=== PATIENT | female | born 1940 | race Caucasian/White ===

== ENCOUNTER → 2019-12-13 11:21 | Outpatient (BNVA) | payer MEDICARE, OTHER, SELFPAY | PROVIDERS: Family Provider Family Medicine; PCP Family Medicine; Visit Provider Nurse Practitioner Family | DX: N39.46 Mixed incontinence (principal); R82.71 Bacteriuria; R31.0 Gross hematuria | CPT/HCPCS: 81001; 87077; 87086; 87186 ==

== ENCOUNTER → 2021-08-27 12:05 | Outpatient (BNVA) | payer MEDICARE, OTHER, SELFPAY | PROVIDERS: Family Provider Family Medicine; PCP Family Medicine; Visit Provider Internal Medicine Cardiovascular Disease | DX: R06.02 Shortness of breath (principal); I50.33 Acute on chronic diastolic (congestive) heart failure; R60.0 Localized edema; I48.20 Chronic atrial fibrillation, unspecified; I11.0 Hypertensive heart disease with heart failure; Z95.0 Presence of cardiac pacemaker | CPT/HCPCS: 80048; 83880 ==

== ENCOUNTER → 2021-09-06 08:13 | Outpatient (BNVA) | payer MEDICARE, OTHER, SELFPAY | PROVIDERS: Family Provider Family Medicine; PCP Family Medicine; Referring Provider Internal Medicine Cardiovascular Disease; Visit Provider Internal Medicine Cardiovascular Disease | DX: Z01.810 Encounter for preprocedural cardiovascular examination (principal); I50.32 Chronic diastolic (congestive) heart failure; R06.02 Shortness of breath; R60.0 Localized edema | CPT/HCPCS: 80048; 83880 ==

== ENCOUNTER 2021-09-07 14:18 | Outpatient (CLI) | payer MEDICARE, OTHER, SELFPAY ==
--- NOTE | 2021-09-07 14:25 | XR_ITS ---
WS: [id number] Chest 2 views, 09/07/2021 Clinical Data: ACUTE BRONCHITIS Comparison: Multiple chest, 04/08/2018. Findings: No nodules, masses or effusions are seen. The heart is normal. The pulmonary vascularity is not increased. No pneumonia or pneumothorax is seen. The aortic arch and descending thoracic aorta s how minimal calcification and tortuosity. There is a permanent pacemaker with the generator overlying the left upper chest. There are clips in the right upper quadrant from a cholecystectomy. There is a n enchondroma or bone infarct in the proximal left humerus. XR/XR chest 2V* [id number] Impression: Atherosclerosis.
== END 2021-09-07 14:19 | disposition home or self-care (01) ==
PROVIDERS: PCP Family Medicine; Visit Provider Clinical Nurse Specialist Adult Health
DX: J20.9 Acute bronchitis, unspecified (principal)
CPT/HCPCS: 71046

== ENCOUNTER → 2022-02-27 13:15 | Outpatient (BNVA) | payer MEDICARE, OTHER, SELFPAY | PROVIDERS: PCP Family Medicine; Visit Provider Internal Medicine Cardiovascular Disease | DX: I11.0 Hypertensive heart disease with heart failure (principal); I50.32 Chronic diastolic (congestive) heart failure; R60.0 Localized edema; Z95.0 Presence of cardiac pacemaker; I48.20 Chronic atrial fibrillation, unspecified | CPT/HCPCS: 99213; 99214 ==

== ENCOUNTER 2022-03-10 08:17 | Inpatient (IN) | payer MEDICARE, OTHER, SELFPAY ==
[2022-03-10] VITALS (15 sets, daily range): BP systolic 130–151; BP diastolic 50–88; PULSE 60–97; RESP 15–18; TEMP 35.9–36.8; O2SAT 90–97; BMI 28.3; BMI 29.5
--- NOTE | 2022-03-10 08:36 | XRR_ITS ---
PROCEDURE INFORMATION: Exam: XR Lumbosacral Spine Exam date and time: 03/10/2022 8:47 AM Age: 81 years old Clinical indication: Low back pain TECHNIQUE: Imaging protocol: XR of the lumbosacral spine. Views: 2 or 3 views. COMPARISON: CT Abdomen/Pelvis Renal [id number] 03/08/2019 7:06 PM FINDINGS: Tubes, catheters and devices: Partially visualized pacer lead seen in the right ventricle. Bones/joints: No acute fracture. Mild vertebral body height loss centrally along the inferior endplate of L2. Multilevel degenerative disc disease involving the L3-S1 segment. Grade 1 anterolisthesis of L4 on L5 and L5 on S1. Facet arthropathy noted in the lower lumbar spine. Soft tissues: See Intraperitoneal space finding. Intraperitoneal space: Cholecystectomy clips noted. Surgical clips also noted in the right hemipelvis. XR/XR lumbar spine 2-3V* [id number] IMPRESSION: Mild chronic appearing vertebral body height loss centrally along the inferior endplate of L2. Multilevel degenerative disc disease involving the L3-S1 segment. Grade 1 anterolisthesis of L4 on L5 and L5 on S1 with facet arthropathy noted in the lower lumbar spine.
--- NOTE | 2022-03-10 08:37 | W.ED.BACK ---
HPI - Back Pain/Injury General: Chief Complaint: Back Pain/Injury Stated Complaint: Severe Lower Back Pain Time Seen by Provider: 03/10/22 08:27 Source: patient Mode of arrival: ambulatory Limitations: no limitations History of Present Illness: 81-year-old female states that she had bent down to pick something up yesterday and felt a sharp spasm in her back. States she has had low back pain since then. She states it was severe last night and has been having a difficult time walking due to it states actually improved today pain is now 6 out of 10 improved with rest she states this feels painful with movement denies any bowel or bladder incontinence. She states that since her pain she has not really been able to walk at all Associated symptoms: Deny abdominal pain, chills, dysuria, fever(s), nausea or vomiting Review of Systems Const: Denies: fever(s), chills, body aches or change in appetite Eyes: Denies: blurry vision or eye discomfort ENMT: Denies: throat pain or dental pain Card: Denies: chest pain Resp: Denies: dyspnea GI: Denies: abdominal pain, nausea, vomiting or diarrhea : Denies: dysuria Musc: Reports: back pain Skin/Breast: Denies: rash Neuro: Denies: headache(s) Psych: Denies: depression Asif/Lymph: Denies: easy bruising All/Imm: Denies: urticaria PFSH ED PFSH: Medical History Benign essential HTN CHF (congestive heart failure) Chronic episodic atrial fibrillation Patient has a history of prolonged bleeding and easy bruising. For that reason, she is not on any oral anticoagulation. Gross hematuria Hx of cardiac pacemaker Leg edema Mixed incontinence Vulvar abscess Surgical History S/P cardiac pacemaker procedure S/P cholecystectomy S/P cystoscopy with ureteral stent placement S/P hysterectomy Status post hip surgery Family History Mother , 80 Cancer colon Diabetes Father , 90 No problems noted. Family/Other CAD (coronary artery disease) Cancer uterine Brother CAD (coronary artery disease) Daughter Diabetes Denies family history of Clotting disorder Dementia Chronic kidney disease (CKD) Suicide Anesthesia complication Bleeding disorder Lung disease Stroke Social History Smoking and tobacco status: never smoked Alcohol intake: never Marital status: / Current occupational status: retired Physical Exam Const: COMMON NORMALS: no acute distress, patient oriented x3 and healthy appearing HENMT: COMMON NORMALS: normocephalic and atraumatic HEAD & SCALP: normocephalic and atraumatic Eye: COMMON NORMALS: Equal, round and reactive pupils present and EOMs intact bilaterally PUPIL: Yes Equal, round and reactive pupils present Neck/C-Spine: COMMON NORMALS: full ROM and supple Chest: COMMONS NORMALS: normal inspection of the chest and normal palpation of entire chest wall Resp: COMMON NORMALS: normal respiratory effort, No retractions, No use of accessory muscles and clear to auscultation bilaterally AUSCULTATION: clear to auscultation bilaterally Cardio: COMMON NORMALS: regular rate, regular rhythm and No murmurs present (Cardio) RATE: regular rate RHYTHM: regular rhythm GI: COMMON NORMALS: Normal to inspection, nondistended, normoactive bowel sounds present, Soft to palpation, non-tender and no masses PALPATION: Yes Soft to palpation Back/Pelvis: OTHER: Paraspinal tenderness no midline tenderness no saddle anesthesia Extremity: COMMON NORMALS: normal to inspection and full ROM Neuro: COMMON NORMALS: patient oriented x3, moves all extremities and no focal motor deficits Psych: COMMON NORMALS: mental status grossly normal, Normal thought process present and cooperative THOUGHT PROCESS: Normal thought process present Skin: COMMON NORMALS: no rashes or lesions noted and no wounds GENERAL SKIN EXAM: no rashes or lesions noted Course Vital Signs: Vital signs: Vital Signs Temperature 98.2 F 03/10/22 08:37 Pulse Rate 79 03/10/22 08:37 Respiratory Rate 18 03/10/22 08:37 Blood Pressure 146/50 03/10/22 10:45 Pulse Oximetry 93 03/10/22 10:45 MDM - Back Pain/Injury Medical Decision Making Patient presents with low back pain likely muscular in nature she has no signs of cord compression patient's family states that she lives with them but they are unable to care for her and want her admitted for likely half-way placement. Labs : 03/10/22 09:34 03/10/22 09:34 Radiology Impressions Lumbar Spine X-Ray 03/10/22 08:36 IMPRESSION: Mild chronic appearing vertebral body height loss centrally along the inferior endplate of L2. Multilevel degenerative disc disease involving the L3-S1 segment. Grade 1 anterolisthesis of L4 on L5 and L5 on S1 with facet arthropathy noted in the lower lumbar spine. Lumbar Spine CT 03/10/22 09:12 IMPRESSION: 1. Mild compression deformity centrally along the inferior endplate of L2 which appears chronic. Advanced multilevel degenerative disc disease involving the L3-S1 segment. This includes facet arthropathy and grade 1 anterolisthesis of L4 on L5 and L5 on S1. Moderate to severe central canal stenosis most pronounced at L3-L4. 2. Partially visualized small volume pleural effusions, left greater than right. 3. Severe DJD and potential deformity from prior fracture involving the right hip/proximal right femur. Laboratory Results WBC 6.8 10^3/uL (4.0-10.0) 03/10/22 09:34 RBC 3.07 10^6/uL (4.1-5.3) L 03/10/22 09:34 Hgb 10.4 g/dL (11.5-15.3) L 03/10/22 09:34 Hct 32.3 % (37.0-47.0) L 03/10/22 09:34 MCV 105.2 fl (81-99) H 03/10/22 09:34 MCH 33.9 pg (28.0-34.0) 03/10/22 09:34 MCHC 32.2 g/dL (30.0-36.0) 03/10/22 09:34 RDW 19.8 % (12.1-15.1) H 03/10/22 09:34 Plt Count 294 10^3/cmm (130-400) 03/10/22 09:34 MPV 9.2 fL (7.4-10.4) 03/10/22 09:34 Neut % (Auto) 64.7 % 03/10/22 09:34 Lymph % (Auto) 15.1 % 03/10/22 09:34 Villalba % (Auto) 18.8 % 03/10/22 09:34 Eos % (Auto) 0.1 % 03/10/22 09:34 Baso % (Auto) 0.4 % 03/10/22 09:34 Neut # (Auto) 4.41 10^3/uL (1.8-7.7) 03/10/22 09:34 Lymph # (Auto) 1.0 10^3/uL (0.8-4.8) 03/10/22 09:34 Villalba # (Auto) 1.3 10^3/uL (0.2-0.9) H 03/10/22 09:34 Eos # (Auto) 0.0 10^3/uL (0.0-0.8) 03/10/22 09:34 Baso # (Auto) 0.0 10^3/uL (0.0-0.1) 03/10/22 09:34 Nucleated RBC % (auto) 0 % 03/10/22 09:34 Nucleated RBCs # 0.0 /100WBC 03/10/22 09:34 Sodium 135 mmol/L (136-145) L 03/10/22 09:34 Potassium 3.4 mmol/L (3.5-5.1) L 03/10/22 09:34 Chloride 97 mmol/L (98-107) L 03/10/22 09:34 Carbon Dioxide 24 mmol/L (22-29) 03/10/22 09:34 Anion Gap 17.4 (5-19) 03/10/22 09:34 BUN 16 mg/dL (8-23) 03/10/22 09:34 Creatinine 1.0 mg/dL (0.5-0.9) H 03/10/22 09:34 GFR Calculation Not Reportable 03/10/22 09:34 Glucose 101 mg/dL (65-115) 03/10/22 09:34 Calculated Osmolality 281 mOsm/kg (285-295) L 03/10/22 09:34 Calcium 9.0 mg/dL (8.5-10.5) 03/10/22 09:34 Total Bilirubin 2.2 mg/dL (0.15-1.2) H 03/10/22 09:34 AST 40 U/L (0-32) H 03/10/22 09:34 ALT 11 U/L (0-33) 03/10/22 09:34 Alkaline Phosphatase 197 IU/L (35-105) H 03/10/22 09:34 Total Protein 6.2 g/dL (6.6-8.7) L 03/10/22 09:34 Albumin 3.2 g/dL (3.5-5.2) L 03/10/22 09:34 Globulin 3.0 g/dL (1.3-4.6) 03/10/22 09:34 Urine Color Yellow (Yellow) 03/10/22 09:30 Urine Appearance Clear (CLEAR) 03/10/22 09:30 Urine pH 5 (5-7) 03/10/22 09:30 Ur Specific [place] 1.010 (1.005-1.030) 03/10/22 09:30 Urine Protein Neg (Negative) 03/10/22 09:30 Urine Glucose (UA) Norm (Normal) 03/10/22 09:30 Urine Ketones 1+ (Negative) H 03/10/22 09:30 Urine Blood Neg (Negative) 03/10/22 09:30 Urine Nitrate Negative (Negative) 03/10/22 09:30 Urine Bilirubin Neg (Negative) 03/10/22 09:30 Urine Urobilinogen 1 mg/dL (Negative) H 03/10/22 09:30 Ur Leukocyte Esterase Negative (Negative) 03/10/22 09:30 Discharge Plan Discharge Condition: Stable Prescriptions: No Action acetaminophen [Tylenol Extra Strength] 500 mg tablet 500 mg PO Q6H PRN0RF famotidine 20 mg tablet 20 mg PO BID 0RF allopurinol 100 mg tablet 100 mg PO DAILY 0RF cholecalciferol (vitamin D3) 1,250 mcg (50,000 unit) capsule 1,250 mcg PO DAILY 0RF furosemide 40 mg tablet 40 mg PO BID Qty: 60 5RF potassium chloride [Klor-Con M20] 20 mEq tablet,ER particles/crystals 20 meq PO BID Qty: 60 5RF Referrals: Lai Wren MD [Primary Care Provider] - Coding Level of Care Code ED Manager [employer] for Chg Fwd Exam Comprehensive
[2022-03-10] MEDS: HYDROcodone-acetaminophen 5-325 mg Tablet 1 TAB PO (08:43)
--- NOTE | 2022-03-10 08:48 | PC.NURSE ---
Patient daughter states she is concerned that her mother can not go home because she forgets if she takes her medications, she was in so much pain per daughter last night that she did not get up to go to the bathroom and urinated in the chair she was sitting in. Patient reports that at this time her pain is 5/10 and doing better than it was this morning. Verified with Dr. Barrios that it was okay to give pain pill that was prescribed, he states okay to give.
--- NOTE | 2022-03-10 09:12 | CTR_ITS ---
PROCEDURE INFORMATION: Exam: CT Lumbar Spine Without Contrast Exam date and time: 03/10/2022 9:46 AM Age: 81 years old Clinical indication: Low back pain TECHNIQUE: Imaging protocol: Computed tomography images of the lumbar spine without contrast. Radiation optimization: All CT scans at this facility use at least one of these dose optimization techniques: automated exposure control; mA and/or kV adjustment per patient size (includes targeted exams where dose is matched to clinical indication); or iterative reconstruction. COMPARISON: CR (PELVIS, ) 03/10/2022 8:47 AM RADIATION DOSE METRICS: Total DLP (mGy-cm): 2013.14 FINDINGS: Vertebrae: Generalized osseous demineralization. Grade 1 anterolisthesis of L4 on L5 and L5 on S1 secondary to facet arthropathy at these levels. Mild vertebral body height loss centered centrally along the inferior endplate of L2 which appears chronic. Discs/Spinal canal/Neural foramina: Multilevel degenerative disc disease most significant at L3-L4, L4-L5, and L5-S1. Moderate to severe central canal stenosis most pronounced at L3-L4. 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 There also appears to be deformity potentially from prior fracture involving the proximal right femur. Pleural space: Partially visualized small volume pleural effusions, left greater than right. Soft tissues: Subcutaneous edema and skin thickening within the soft tissues of the low back. CT/CT lumbar spine wo con* [id number] IMPRESSION: 1. Mild compression deformity centrally along the inferior endplate of L2 which appears chronic. Advanced multilevel degenerative disc disease involving the L3-S1 segment. This includes facet arthropathy and grade 1 anterolisthesis of L4 on L5 and L5 on S1. Moderate to severe central canal stenosis most pronounced at L3-L4. 2. Partially visualized small volume pleural effusions, left greater than right. 3. Severe DJD and potential deformity from prior fracture involving the right hip/proximal right femur.
[2022-03-10 09:41] LABS: Add Urine Microscopic? NO; Charge for UA Resulting for Rev
[2022-03-10 09:42] LABS: Bilirubin Urine Neg (Negative); Blood Urine Neg (Negative); Glucose Urine UA Norm (Normal); Ketones Urine 1+ (Negative); Leukocyte Esterase Urine Negative (Negative); Nitrate Urine Negative (Negative); Protein Urine Neg (Negative); Urine Appearance Clear (CLEAR); Urine Color Yellow (Yellow); Urobilinogen Urine 1 mg/dL (Negative); pH Urine 5 (5-7)
[2022-03-10 09:45] LABS: Basophils % 0.4 %; Eosinophils % 0.1 %; Hematocrit 32.3 % (37.0-47.0); Hemoglobin 10.4 g/dL (11.5-15.3); Lymphocytes % 15.1 %; Mean Corpuscular HGB Conc 32.2 g/dL (30.0-36.0); Mean Corpuscular Hemoglobin 33.9 pg (28.0-34.0); Mean Corpuscular Volume 105.2 fl (81-99); Mean Platelet Volume 9.2 fL (7.4-10.4); Monocytes # 1.3 10^3/uL (0.2-0.9); Monocytes % 18.8 %; Neutrophils # 4.41 10^3/uL (1.8-7.7); Neutrophils % 64.7 %; Nucleated Red Blood Cells % 0 %; Platelet Count 294 10^3/cmm (130-400); Red Blood Count 3.07 10^6/uL (4.1-5.3); Red Cell Distribution Width 19.8 % (12.1-15.1); White Blood Count 6.8 10^3/uL (4.0-10.0)
[2022-03-10 10:03] LABS: Alanine Aminotransferase 11 U/L (0-33); Albumin Level 3.2 g/dL (3.5-5.2); Alkaline Phosphatase 197 IU/L (35-105); Anion Gap 17.4 (5-19); Aspartate Amino Transferase 40 U/L (0-32); Blood Urea Nitrogen 16 mg/dL (8-23); Carbon Dioxide 24 mmol/L (22-29); Chloride 97 mmol/L (98-107); Glucose 101 mg/dL (65-115); Osmolality Calculated 281 mOsm/kg (285-295); Potassium 3.4 mmol/L (3.5-5.1); Sodium 135 mmol/L (136-145); Total Bilirubin 2.2 mg/dL (0.15-1.2); Total Protein 6.2 g/dL (6.6-8.7)
[2022-03-10] MEDS: ondansetron 2 mg/ML SDV 2 mL 4 MG IVP ×2 (10:28→14:13)
[2022-03-10 12:02] LABS: Erythrocyte Sedimentation Rate 46 mm/hr (0-15)
--- NOTE | 2022-03-10 12:02 | PM.HP ---
Providers/Chief Complaint Admitting Physician: Matthias Dickerson MD Primary Care Provider: Lai Wren MD Chief Complaint: Severe Lower Back Pain History of Present Illness Saul Rubin is a 81 year old female with a past medical history of diastolic CHF, bilateral lower extremity edema, paroxysmal atrial fibrillation not on anticoagulation due to bleeding in bruising, hypertension, history of pacemaker placement, who presents to [facility] due to bilateral extremity edema, generalized weakness, shortness of breath, and back pain. Patient tells me that she lives in [place], she lives with her family, she typically ambulates in a wheeled walker, can go to and from the bathroom, but does not really ambulate outside the house, she can feed herself, no recent falls, recent injuries, she does have some degree of chronic back pain. She tells me that yesterday, she was reaching for something on the floor, when she had a sudden onset of severe lower back pain. No urinary incontinence. No bowel incontinence. No saddle or perianal anesthesia. She says since then she has not been able to transfer, not been able to get out of her wheelchair, and the pain has been very severe. She tells me that she is developing increasingly shortness of breath, with bilateral lower extremity edema she takes Lasix but she tells is not helping her. Her swelling of her legs is all the way up to her thighs. Denies any chest pain. No palpitations. No fevers, no cough. No history of smoking. No history of DVTs. No hemoptysis. She does report fatigue, malaise, has an appropriate appetite, no weight loss no night sweats Review of Systems Const: Denies: fever(s), chills, fatigue or malaise Eyes: Denies: change in vision ENMT: Denies: nasal congestion Card: Reports: edema and swelling of feet/ankles; Denies: chest pain Resp: Denies: dyspnea, productive cough, non-productive cough or wheezing GI: Denies: abdominal pain, nausea, vomiting, hematemesis, diarrhea, constipation, hematochezia or melena : Denies: flank pain, dysuria or urinary frequency Musc: Reports: back pain and muscle weakness; Denies: neck pain Skin/Breast: Denies: rash Neuro: Denies: dizziness Psych: Denies: anxiety or depression Endo: Denies: polyuria or polydipsia Medications/Allergies Home Medications Medication Instructions Recorded Confirmed Last Taken Type cholecalciferol (vitamin D3) 1,250 1,250 mcg PO DAILY 12/13/19 02/27/22 Unknown History mcg (50,000 unit) capsule acetaminophen 500 mg tablet 500 mg PO Q6H PRN 08/27/21 02/27/22 Unknown History (Tylenol Extra Strength) allopurinol 100 mg tablet 100 mg PO DAILY 08/27/21 02/27/22 Unknown History famotidine 20 mg tablet 20 mg PO BID tab 08/27/21 02/27/22 Unknown History furosemide 40 mg tablet 40 mg PO BID #60 tab 08/28/21 02/27/22 Unknown Rx potassium chloride 20 mEq 20 meq PO BID #60 tab 08/28/21 02/27/22 Unknown Rx tablet,extended release(part/cryst) (Klor-Con M) Allergies Allergy/AdvReac Type Severity Reaction Status Date / Time iodine Allergy NA Verified 08/27/21 08:29 lactase [From Dairy Aid] Allergy NA Verified 08/27/21 08:29 Penicillins Allergy NA Verified 08/27/21 08:29 soap Allergy NA Verified 08/27/21 08:29 PFSH Acute PFSH: Medical History (Updated 03/10/22 @ 12:13 by Matthias Dickerson MD) Benign essential HTN CHF (congestive heart failure) Chronic episodic atrial fibrillation Patient has a history of prolonged bleeding and easy bruising. For that reason, she is not on any oral anticoagulation. Gross hematuria Hx of cardiac pacemaker Leg edema Mixed incontinence Vulvar abscess Surgical History S/P cardiac pacemaker procedure S/P cholecystectomy S/P cystoscopy with ureteral stent placement S/P hysterectomy Status post hip surgery Family History Mother , 80 Cancer colon Diabetes Father , 90 No problems noted. Family/Other CAD (coronary artery disease) Cancer uterine Brother CAD (coronary artery disease) Daughter Diabetes Denies family history of Clotting disorder Dementia Chronic kidney disease (CKD) Suicide Anesthesia complication Bleeding disorder Lung disease Stroke Social History Smoking and tobacco status: never smoked Alcohol intake: never Marital status: / Current occupational status: retired Vitals/I&O/Wt Last Vital Signs Temp 98.2 F 03/10/22 08:37 Pulse 79 03/10/22 08:37 Resp 18 03/10/22 08:37 BP 146/50 03/10/22 10:45 Pulse Ox 93 03/10/22 10:45 Weight last 48 hrs Weight 70.307 kg Physical Exam Const: COMMON NORMALS: no acute distress and patient oriented x3 HENMT: COMMON NORMALS: normocephalic HEAD & SCALP: normocephalic Eye: COMMON NORMALS: Equal, round and reactive pupils present and EOMs intact bilaterally Neck/C-Spine: COMMON NORMALS: no JVD Resp: COMMON NORMALS: normal respiratory effort, No retractions, No use of accessory muscles and clear to auscultation bilaterally AUSCULTATION: clear to auscultation bilaterally Cardio: COMMON NORMALS: no JVD, regular rate, regular rhythm, S1 normal heart sound present and S2 normal heart sound present RATE: regular rate RHYTHM: regular rhythm HEART SOUNDS: S1 normal heart sound present and S2 normal heart sound present GI: COMMON NORMALS: Normal to inspection, nondistended, normoactive bowel sounds present, Soft to palpation, non-tender and no bruits PALPATION: Yes Soft to palpation and Yes No hepatosplenomegaly present OTHER: On exam, has an abdominal wall hernia, reducible Extremity: COMMON NORMALS: no calf tenderness NARRATIVE EXTREMITY EXAM: Bilateral lower extremity edema, 2+ pitting edema, up to the level of the thighs Neuro: COMMON NORMALS: patient oriented x3, CN's II-XII intact bilaterally, moves all extremities and no focal motor deficits Psych: COMMON NORMALS: mental status grossly normal Data : 03/10/22 09:34 03/10/22 09:34 A&P Assessment and plan (1) Acute exacerbation of CHF (congestive heart failure): Status: Acute (2) Lumbar back pain: Status: Acute (3) Unable to ambulate: Status: Acute (4) Leg edema: Status: Acute (5) Chronic episodic atrial fibrillation: Status: Acute (6) Benign essential HTN: Status: Acute (7) Acute anemia: Status: Acute Plan Acute diastolic CHF exacerbation with bilateral extremity edema -Pitting edema up to the level of the thighs 2+ -Start Lasix 40 IV twice daily -Potassium greater than 4, mag greater than 2 -Fluid restriction 1000 cc -Lovenox for DVT prophylaxis -For now she is a full code, however she wants to go over her CODE STATUS with her family Bilateral lower extremity edema up to the level of thighs, as above Acute anemia -Hemoglobin 10.4 -Hemoccult stool, ferritin, iron, B12, folate Lower lumbar back pain -1. Mild compression deformity centrally along the inferior endplate of L2 which appears chronic. Advanced multilevel degenerative disc disease involving the L3-S1 segment. This includes facet arthropathy and grade 1 anterolisthesis of L4 on L5 and L5 on S1. Moderate to severe central canal stenosis most pronounced at L3-L4. 2. Partially visualized small volume pleural effusions, left greater than right. 3. Severe DJD and potential deformity from prior fracture involving the right hip/proximal right femur. -Pain control morphine -Gabapentin 300 twice daily -Flexeril for muscle spasms -PT OT Elevated LFTs, elevated alk phos, elevated bilirubin, -Will do CT scan abdomen pelvis Paroxysmal atrial fibrillation, History of pacemaker placement Attestations Medical Necessity Statement*: Patient requires hospitalization for diastolic CHF exacerbation, bilateral extremity edema, intractable back pain, anemia, greater than 2 midnights, inpatient Coding Level of Care Code Acute Bi Developer for Willieg Fwd Diagnoses Acute exacerbation of CHF (congestive heart failure) I50.9 Lumbar back pain M54.50 Unable to ambulate R26.2 Leg edema R60.0 Chronic episodic atrial fibrillation I48.20 Benign essential HTN I10 Acute anemia D64.9
--- NOTE | 2022-03-10 12:13 | PC.NURSE ---
Attempted to call report, states they will call back.
[2022-03-10 12:29] LABS: Ferritin 174 ng/mL (15-150); Iron 93 ug/dL (37-145); Magnesium 2.1 mg/dL (1.7-2.3); NT Pro B Type Natriuretic Pept 3821 pg/mL (0-450); Percent Saturation 54.7 % (20-50); Total Iron Binding Capacity 170 mcg/dl; Unsaturated Iron Binding 77 ug/dL (112-347); Vitamin B12 581 pg/mL (232-1245)
[2022-03-10 12:32] LABS: Folate Level 7.4 ng/mL (4.8-37.3)
--- NOTE | 2022-03-10 13:01 | CTR_ITS ---
PROCEDURE INFORMATION: Exam: CT Abdomen And Pelvis Without Contrast Exam date and time: 03/10/2022 1:52 PM Age: 81 years old Clinical indication: Other: Low back pain; Prior surgery; Surgery type: Hyst, gb, stomach; Patient HX: C/O lbp w elev labs; Additional info: Hyperbolirubinemia, elevated alk phos TECHNIQUE: Imaging protocol: Computed tomography of the abdomen and pelvis without contrast. Radiation optimization: All CT scans at this facility use at least one of these dose optimization techniques: automated exposure control; mA and/or kV adjustment per patient size (includes targeted exams where dose is matched to clinical indication); or iterative reconstruction. COMPARISON: CT Abdomen/Pelvis Renal [id number] 03/08/2019 7:06 PM RADIATION DOSE METRICS: Total DLP (mGy-cm): 1529.59 FINDINGS: Tubes, catheters and devices: Pacemaker partially visualized. Lungs: Bibasilar atelectasis versus infiltrate. Right lower lobe demonstrates 2 possible adjacent pulmonary nodules measuring 17 and 9.3 mm, dedicated nonemergent chest CT advised for further evaluation. Pleural spaces: Moderate bilateral right greater left pleural effusions. Heart: Coronary artery atherosclerotic calcifications. Liver: Hepatic steatosis suspected. Gallbladder and bile ducts: Cholecystectomy. Pancreas: Normal. No ductal dilation. Spleen: Normal. No splenomegaly. Adrenal glands: Normal. No mass. Kidneys and ureters: Right kidney cyst, negative for follow-up advised. Mild right hydronephrosis and hydroureter without focal obstructing lesion. Stomach and bowel: Unremarkable. No obstruction. No mucosal thickening. Appendix: No evidence of appendicitis. Intraperitoneal space: Unremarkable. No free air. No significant fluid collection. Vasculature: Unremarkable. No abdominal aortic aneurysm. Lymph nodes: Unremarkable. No enlarged lymph nodes. Urinary bladder: Mild urinary bladder wall thickening may be due to nondistention, a cystitis is also consideration. Reproductive: Unremarkable as visualized. 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 Soft tissues: Large umbilical hernia containing omentum and bowel without dilation or inflammation. Anasarca. Other findings: Diverticulosis diverticulitis. CT/CT abdomen pelvis wo con [id number] IMPRESSION: 1. Negative for focal acute inflammatory process in the abdomen or pelvis. 2. Moderate bilateral right greater left pleural effusions. 3. Coronary artery atherosclerotic calcifications. 4. Pacemaker partially visualized. 5. Bibasilar atelectasis versus infiltrate. 6. Right lower lobe demonstrates 2 possible adjacent pulmonary nodules measuring 17 and 9.3 mm, dedicated nonemergent chest CT advised for further evaluation. 7. Hepatic steatosis suspected. 8. Cholecystectomy. 9. Right kidney cyst, negative for follow-up advised. 10. Mild right hydronephrosis and hydroureter without focal obstructing lesion. 11. Large umbilical hernia containing omentum and bowel without dilation or inflammation. 12. Diverticulosis diverticulitis. 13. Mild urinary bladder wall thickening may be due to nondistention, a cystitis is also consideration. 14. Anasarca. 15. 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
[2022-03-10] MEDS: enoxaparin 40 mg/0.4 mL Syringe SUBCUT (14:11)
[2022-03-10] MEDS: potassium chloride ER 20 mEq Tablet PO ×2 (14:13→18:02)
[2022-03-10] MEDS: FUROsemide 10 mg/mL SDV 4mL 40 MG IVP (14:14)
[2022-03-10] MEDS: pantoprazole 40 mg SDV IVP (14:15)
[2022-03-10 16:11] LABS: LAB Peripheral Smear Sent for Review
--- NOTE | 2022-03-10 17:58 | XRR_ITS ---
PROCEDURE INFORMATION: Exam: XR Bilateral Hips Exam date and time: 03/10/2022 6:24 PM Age: 81 years old Clinical indication: Right hip; Patient HX: C/O chronic R hip pain; Additional info: Chronic R hip FX? TECHNIQUE: Imaging protocol: XR bilateral hips. Views: 2 views of hips with pelvis when performed. COMPARISON: CT abdomen pelvis wo con [id number] 03/10/2022 1:52 PM FINDINGS: Bones/joints: Chronic deformity of the proximal right femur with sequela of old callused hip fracture and associated straightening of the femoral head/neck junction. There is severe DJD of the femoroacetabular joint space which includes joint space narrowing, flattened morphology of the femoral head and acetabulum, and marginal osteophyte formation. Soft tissues: Unremarkable. XR/XR hip BI 2V wo/w pel [id number] IMPRESSION: Chronic deformity of the proximal right femur from old callused right hip fracture. There is straightening of the femoral head/neck junction with associated severe DJD of the right hip as described in the body of the report.
[2022-03-11] VITALS (12 sets, daily range): BP systolic 116–147; BP diastolic 51–70; PULSE 60–71; RESP 12–17; TEMP 36.3–37.4; O2SAT 84–96
[2022-03-11] MEDS: pantoprazole 40 mg SDV IVP ×2 (03:02→13:42)
[2022-03-11] MEDS: FUROsemide 10 mg/mL SDV 4mL 40 MG IVP ×2 (03:02→13:42)
[2022-03-11] MEDS: gabapentin 300 mg Capsule PO ×2 (03:03→13:42)
[2022-03-11 04:27] LABS: Basophils # 0.1 10^3/uL (0.0-0.1); Basophils % 0.7 %; Eosinophils # 0.1 10^3/uL (0.0-0.8); Eosinophils % 0.7 %; Hematocrit 31.4 % (37.0-47.0); Hemoglobin 9.9 g/dL (11.5-15.3); Lymphocytes # 1.3 10^3/uL (0.8-4.8); Lymphocytes % 18.6 %; Mean Corpuscular HGB Conc 31.5 g/dL (30.0-36.0); Mean Corpuscular Hemoglobin 34.1 pg (28.0-34.0); Mean Corpuscular Volume 108.3 fl (81-99); Mean Platelet Volume 9.3 fL (7.4-10.4); Monocytes # 1.3 10^3/uL (0.2-0.9); Monocytes % 18.3 %; Neutrophils # 4.26 10^3/uL (1.8-7.7); Nucleated Red Blood Cells % 0 %; Platelet Count 218 10^3/cmm (130-400); Red Cell Distribution Width 20.1 % (12.1-15.1)
[2022-03-11 04:47] LABS: Alanine Aminotransferase 11 U/L (0-33); Alkaline Phosphatase 190 IU/L (35-105); Anion Gap 15.3 (5-19); Aspartate Amino Transferase 39 U/L (0-32); Blood Urea Nitrogen 16 mg/dL (8-23); Calcium 9.1 mg/dL (8.5-10.5); Carbon Dioxide 25 mmol/L (22-29); Chloride 101 mmol/L (98-107); Globulin 2.5 g/dL (1.3-4.6); Glucose 88 mg/dL (65-115); Magnesium 2.1 mg/dL (1.7-2.3); NT Pro B Type Natriuretic Pept 5179 pg/mL (0-450); Osmolality Calculated 285 mOsm/kg (285-295); Phosphorus 3.3 mg/dL (2.5-4.5); Potassium 4.3 mmol/L (3.5-5.1); Sodium 137 mmol/L (136-145); Total Bilirubin 1.7 mg/dL (0.15-1.2); Total Protein 5.5 g/dL (6.6-8.7)
[2022-03-11] MEDS: cholecalciferol (vitamin D3) 1,000 unit Tablet 1000 UNIT PO (08:34)
[2022-03-11] MEDS: allopurinol 100 mg Tablet PO (08:34)
[2022-03-11] MEDS: potassium chloride ER 20 mEq Tablet PO ×2 (08:35→17:37)
[2022-03-11] MEDS: enoxaparin 40 mg/0.4 mL Syringe SUBCUT (13:42)
--- NOTE | 2022-03-11 19:58 | PC.NURSE ---
i reported low o2 88 to nurse and placing oxygen on her
--- NOTE | 2022-03-11 20:50 | PM.PN ---
Subjective Subjective: Reports she is doing okay. Has not yet worked with therapy today, but did work yesterday. Chest pain improved. Is not short of breath at rest. Chronic deformity in right hip reports it is since childhood, since she had infection in the hip. Has been having swelling in her legs. Vitals/I&O/Wt Last Vital Signs Temp 99.4 F 03/11/22 19:57 Pulse 60 03/11/22 19:57 Resp 16 03/11/22 19:57 BP 116/54 03/11/22 19:57 Pulse Ox 96 03/11/22 19:59 03/11/22 03/11/22 03/11/22 06:59 14:59 22:59 Intake Total 480 / 480 240 / 720 Output Total 600 / 800 800 / 800 750 / 1550 Balance -600 / -80 -320 / -320 -510 / -830 Weight last 48 hrs Weight 73.074 kg Weight 70.307 kg Physical Exam Const: COMMON NORMALS: alert GENERAL APPEARANCE: cooperative ORIENTATION/CONSCIOUSNESS: Yes awake HENMT: COMMON NORMALS: normocephalic, EAC's normal, Normal external nose present and moist oral mucous membranes HEAD & SCALP: normocephalic NOSE: Normal external nose present EXTERNAL AUDITORY CANAL: EAC's normal Neck/C-Spine: COMMON NORMALS: no meningeal signs Chest: CHEST: Yes Symmetrical chest wall rise Resp: COMMON NORMALS: clear to auscultation bilaterally AUSCULTATION: clear to auscultation bilaterally Cardio: COMMON NORMALS: regular rate, regular rhythm and No murmurs present (Cardio) RATE: regular rate RHYTHM: regular rhythm GI: COMMON NORMALS: Normal to inspection, nondistended, normoactive bowel sounds present, Soft to palpation and non-tender PALPATION: Yes Soft to palpation Extremity: GENERAL: Yes edema (BL LE) Neuro: COMMON NORMALS: moves all extremities SENSORIUM/ORIENTATION: Yes alert MENINGEAL SIGNS: Yes no meningeal signs Psych: COMMON NORMALS: mental status grossly normal Skin: COMMON NORMALS: no wounds RASHES: no rashes Urinary Catheter Management: Mckeon: Cath Placed During This Visit: yes Reason for Continuing Indwelling Catheter: Accurate Measurement of Urinary Output in Critically Ill Patients Urinary Catheter Date of Insertion: 03/10/22 Urinary Catheter Time of Insertion: 15:45 Data : 03/11/22 04:13 03/11/22 04:13 A&P Assessment and plan (1) Acute exacerbation of CHF (congestive heart failure): Continue IV diuretics for CHF exacerbation with pleural effusions bilaterally, lower extremity edema. Continue fluid restriction. In negative balance. Track weight. Changed to cardiac diet. TTE Status: Acute (2) Lumbar back pain: Add [place] for pain control to help with mobilization with therapy. Status: Acute (3) Unable to ambulate: Continue therapy. Will need rehabilitation at SNF Status: Acute (4) Leg edema: Continue diet as above. Status: Acute (5) Chronic episodic atrial fibrillation: Status: Acute (6) Benign essential HTN: Status: Acute (7) Acute anemia: Thiamine B12, folic acid, TSH normal. Not iron deficient. May be component of ACD. Requested. Status: Acute Plan Bilateral lower extremity edema up to the level of thighs, as above Elevated LFTs, elevated alk phos, elevated bilirubin, Hepatic steatosis noted. -CT scan abdomen pelvis 1. Negative for focal acute inflammatory process in the abdomen or pelvis. 2. Moderate bilateral right greater left pleural effusions. 3. Coronary artery atherosclerotic calcifications. 4. Pacemaker partially visualized. 5. Bibasilar atelectasis versus infiltrate. 6. Right lower lobe demonstrates 2 possible adjacent pulmonary nodules measuring 17 and 9.3 mm, dedicated nonemergent chest CT advised for further evaluation. 7. Hepatic steatosis suspected. 8. Cholecystectomy. 9. Right kidney cyst, negative for follow-up advised. 10. Mild right hydronephrosis and hydroureter without focal obstructing lesion. 11. Large umbilical hernia containing omentum and bowel without dilation or inflammation. 12. Diverticulosis diverticulitis. 13. Mild urinary bladder wall thickening may be due to nondistention, a cystitis is also consideration. 14. Anasarca. 15. 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 Mild R hydronephrosis and hydroureter without focal obstruction. Consider follow-up with urology. Paroxysmal atrial fibrillation, History of pacemaker placement Attestations Medical Necessity Statement*: Continue admission for assessment management of CHF, please discharge planning and arrangements. 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
--- NOTE | 2022-03-11 21:01 | USCV_ITS ---
Saul Rubin Age: 81 Gender: F : 1940 Exam Date: 03/11/2022 22:26 Ordering Phys: Rohan Thomas MD Technologist: BETZY Exam Location: [facility] [place] Indication: CHF BP: / HR: 80 Rhythm: Sinus Technical Quality: Adequate MEASUREMENTS (Male / Female) Normal Values 2D ECHO LV Diastolic Diameter PLAX 3.8 cm 4.2 - 5.9 / 3.9 - 5.3 cm LV Systolic Diameter PLAX 1.6 cm IVS Diastolic Thickness 2.0 cm 0.6 - 1.0 / 0.6 - 0.9 cm IVS Systolic Thickness 1.9 cm LVPW Diastolic Thickness 2.0 cm 0.6 - 1.0 / 0.6 - 0.9 cm LVPW Systolic Thickness 2.4 cm LVOT Diameter 1.7 cm LV Ejection Fraction 2D Teich 87.9 % LV Ejection Fraction MOD 2C 32.7 % LV Ejection Fraction 2C AL 36.8 % LA Diameter 3.8 cm LA Width 3.5 cm LA Height 7.4 cm RA Width 4.3 cm RA Height 5.0 cm Aorta at Sinotubular Diameter 1.1 cm IVC Diameter 1.8 cm M-MODE Aortic Annulus Diameter 2.3 cm LA Ao Ratio MM 1.8 MV E Point Septal Separation 0.4 cm DOPPLER AV Peak Velocity 161.8 cm/s LVOT Peak Velocity 118.0 cm/s AV Area Cont Eq vti 1.6 cm squared AV Area Cont Eq pk 1.7 cm squared MV Peak Velocity 93.0 cm/s MV Area PHT 3.7 cm squared Mitral E to A Ratio 1.7 MV E' Velocity 89.0 cm/s TR Peak Velocity 339.4 cm/s TR Peak Gradient 46.1 mmHg TR Mean Velocity 218.5 cm/s TR Mean Gradient 24.2 mmHg TR Velocity Time Integral 97.5 cm Right Atrial Pressure 10.0 mmHg Pulmonary Artery Systolic Pressu 56.1 mmHg PV Peak Velocity 144.0 cm/s RV Acceleration Time 0.1 s RV Ejection Time 0.3 s RV AcT/ET 0.2 FINDINGS Left Ventricle Normal left ventricular size. LV systolic function is normal witth EF of 55-60%. No regional wall motion abnormalities. Left ventricular hypertrophy noted. Diastolic function is indeterminate Right Ventricle The right ventricle is normal in size and function. Right Atrium The right atrium is normal in size. Left Atrium The left atrium is normal in size. Mitral Valve Structurally normal mitral valve without significant stenosis or prolapse. There is trace mitral regurgitation. Aortic Valve Structurally normal aortic valve without significant sclerosis or stenosis. There is no aortic regurgitation. Tricuspid Valve Structurally normal tricuspid valve without significant stenosis. Mild tricuspid regurgitation. RVSP is 35-40mmHg. This is consistent with mild pulmonary hypertension Pulmonic Valve Structurally normal pulmonic valve without significant stenosis. There is no pulmonic regurgitation. Pericardium Small sized pericardial effusion is seen. Pleural effusion is seen Aorta Normal ascending aorta dimension. CONCLUSIONS LV systolic function is normal with EF of 55-60% Left ventricular hypertrophy is seen Trace mitral regurgitation Mild tricuspid regurgitation Mild pulmonary hypertension Small sized pericardial effusion is seen. Pleural effusion is seen Compared to prior echocardiogram from 03/23/2018,small sized pericardial effusion and pleural effusion is seen Naveed Corral MD (Electronically Signed) Final Date: 12 Mar 2022 11:14 S
[2022-03-12] VITALS (9 sets, daily range): BP systolic 92–122; BP diastolic 42–60; PULSE 59–69; RESP 13–20; TEMP 36.9–37.3; O2SAT 92–100
[2022-03-12] MEDS: pantoprazole 40 mg SDV IVP ×2 (01:14→13:10)
[2022-03-12] MEDS: FUROsemide 10 mg/mL SDV 4mL 40 MG IVP ×2 (01:14→13:11)
[2022-03-12] MEDS: gabapentin 300 mg Capsule PO ×2 (01:15→13:11)
[2022-03-12 06:30] LABS: Basophils # 0.1 10^3/uL (0.0-0.1); Basophils % 0.7 %; Eosinophils # 0.1 10^3/uL (0.0-0.8); Eosinophils % 0.8 %; Hematocrit 28.5 % (37.0-47.0); Hemoglobin 9.3 g/dL (11.5-15.3); Lymphocytes # 1.6 10^3/uL (0.8-4.8); Lymphocytes % 21.6 %; Mean Corpuscular HGB Conc 32.6 g/dL (30.0-36.0); Mean Corpuscular Hemoglobin 33.9 pg (28.0-34.0); Mean Platelet Volume 9.7 fL (7.4-10.4); Monocytes # 1.7 10^3/uL (0.2-0.9); Monocytes % 23.1 %; Neutrophils # 3.93 10^3/uL (1.8-7.7); Neutrophils % 53.1 %; Nucleated Red Blood Cells % 0 %; Platelet Count 267 10^3/cmm (130-400); Red Blood Count 2.74 10^6/uL (4.1-5.3); Red Cell Distribution Width 19.9 % (12.1-15.1); White Blood Count 7.4 10^3/uL (4.0-10.0)
[2022-03-12 06:47] LABS: Alanine Aminotransferase 8 U/L (0-33); Albumin Level 2.7 g/dL (3.5-5.2); Alkaline Phosphatase 180 IU/L (35-105); Aspartate Amino Transferase 33 U/L (0-32); Blood Urea Nitrogen 18 mg/dL (8-23); Calcium 8.9 mg/dL (8.5-10.5); Carbon Dioxide 26 mmol/L (22-29); Chloride 99 mmol/L (98-107); Glucose 84 mg/dL (65-115); Magnesium 2.2 mg/dL (1.7-2.3); Osmolality Calculated 279 mOsm/kg (285-295); Phosphorus 3.2 mg/dL (2.5-4.5); Sodium 134 mmol/L (136-145); Total Bilirubin 1.7 mg/dL (0.15-1.2); Total Protein 5.7 g/dL (6.6-8.7)
[2022-03-12 06:57] LABS: NT Pro B Type Natriuretic Pept 5781 pg/mL (0-450)
[2022-03-12] MEDS: allopurinol 100 mg Tablet PO (08:23)
[2022-03-12] MEDS: potassium chloride ER 20 mEq Tablet PO ×2 (08:23→18:16)
[2022-03-12] MEDS: acetaminophen 325 mg Tablet 650 MG PO ×2 (08:23→18:19)
[2022-03-12] MEDS: cholecalciferol (vitamin D3) 1,000 unit Tablet 1000 UNIT PO (08:23)
--- NOTE | 2022-03-12 11:19 | PC.NURSE ---
Up to bedside commode On bedside commode 27 minutes Unable to have bowel movement Primary care nurse notified Pt back to bed without difficulty Resting in bed, side rails up x2 and call light within reach
--- NOTE | 2022-03-12 11:21 | PC.NURSE ---
Fluid restriction Daughter brought in a starbucks drink after knowing patient is on a fluid restriction Pt drank approximately 480 mL of the starbucks drink Pt drank approximately 30 mL of orange juice Primary care nurse aware of situation
--- NOTE | 2022-03-12 11:41 | P.PN_ITS ---
Subjective Subjective: Episode of vomiting in the late morning. Earlier in the morning did have breakfast. Reports had not had a bowel movement in 4-5 days. Not passing flatus. Some cramping in the abdomen. Has had issues with bowel obstruction in the past, has had multiple abdominal surgeries. Vitals/I&O/Wt Last Vital Signs Temp 98.7 F 03/12/22 08:00 Pulse 60 03/12/22 08:00 Resp 18 03/12/22 08:00 BP 122/60 03/12/22 08:00 Pulse Ox 96 03/12/22 08:00 03/11/22 03/12/22 03/12/22 22:59 06:59 14:59 Intake Total 240 / 720 510 / 510 Output Total 750 / 1550 400 / 1950 100 / 100 Balance -510 / -830 -400 / -1230 410 / 410 Weight last 48 hrs Weight 73.074 kg Physical Exam Narrative: [place] in Const: COMMON NORMALS: alert GENERAL APPEARANCE: cooperative ORIENTATION/CONSCIOUSNESS: Yes awake HENMT: COMMON NORMALS: normocephalic, EAC's normal, Normal external nose present and moist oral mucous membranes HEAD & SCALP: normocephalic NOSE: Normal external nose present EXTERNAL AUDITORY CANAL: EAC's normal Neck/C-Spine: COMMON NORMALS: no meningeal signs Chest: CHEST: Yes Symmetrical chest wall rise Resp: COMMON NORMALS: clear to auscultation bilaterally AUSCULTATION: clear to auscultation bilaterally Cardio: COMMON NORMALS: regular rate, regular rhythm and No murmurs present (Cardio) RATE: regular rate RHYTHM: regular rhythm GI: COMMON NORMALS: Normal to inspection, nondistended, normoactive bowel sounds present, Soft to palpation and non-tender PALPATION: Yes Soft to palpation Extremity: GENERAL: Yes edema (BL LE) Neuro: COMMON NORMALS: moves all extremities SENSORIUM/ORIENTATION: Yes alert MENINGEAL SIGNS: Yes no meningeal signs Psych: COMMON NORMALS: mental status grossly normal Skin: COMMON NORMALS: no wounds RASHES: no rashes Urinary Catheter Management: Mckeon: Cath Placed During This Visit: yes Reason for Continuing Indwelling Catheter: Accurate Measurement of Urinary Output in Critically Ill Patients Urinary Catheter Date of Insertion: 03/10/22 Urinary Catheter Time of Insertion: 15:45 Data : 03/12/22 05:50 03/12/22 05:50 A&P Assessment and plan (1) Obstipation: With vomiting, no BM in 4-5 days, not passing flatus, prior history of bowel obstruction. Bowel sounds present. Possible bowel obstruction. N.p.o. for now as discussed with her. We will assess abdominal series x-ray. Additionally with constipation, Dulcolax. She states that has had episodes like this before, always feels better with moving her bowels. Status: Acute (2) Acute exacerbation of CHF (congestive heart failure): Continue IV diuretics for CHF exacerbation with pleural effusions bilaterally, lower extremity edema. Continue fluid restriction. In negative balance. Track weight. Cardiac diet. TTE with normal EF, LVH, trace MVR, mild TVR. Mild pulmonary hypertension. Small pericardial effusion. Pleural effusion. Status: Acute (3) Lumbar back pain: Added [place] for pain control to help with mobilization with therapy. Status: Acute (4) Unable to ambulate: Continue therapy. Will need rehabilitation at SNF Status: Acute (5) Leg edema: Continue diet as above. Status: Acute (6) Chronic episodic atrial fibrillation: Status: Acute (7) Benign essential HTN: Status: Acute (8) Acute anemia: Thiamine B12, folic acid, TSH normal. Not iron deficient. May be component of ACD. Hemoccult requested. Status: Acute Plan Bilateral lower extremity edema up to the level of thighs, as above Elevated LFTs, elevated alk phos, elevated bilirubin, Hepatic steatosis noted. -CT scan abdomen pelvis 1. Negative for focal acute inflammatory process in the abdomen or pelvis. 2. Moderate bilateral right greater left pleural effusions. 3. Coronary artery atherosclerotic calcifications. 4. Pacemaker partially visualized. 5. Bibasilar atelectasis versus infiltrate. 6. Right lower lobe demonstrates 2 possible adjacent pulmonary nodules measuring 17 and 9.3 mm, dedicated nonemergent chest CT advised for further evaluation. 7. Hepatic steatosis suspected. 8. Cholecystectomy. 9. Right kidney cyst, negative for follow-up advised. 10. Mild right hydronephrosis and hydroureter without focal obstructing lesion. 11. Large umbilical hernia containing omentum and bowel without dilation or inflammation. 12. Diverticulosis diverticulitis. 13. Mild urinary bladder wall thickening may be due to nondistention, a cystitis is also consideration. 14. Anasarca. 15. 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 Mild R hydronephrosis and hydroureter without focal obstruction. Consider follow-up with urology. 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
--- NOTE | 2022-03-12 11:47 | XR_ITS ---
WS: [id number] XR acute abdomen series [id number] REASON FOR EXAM: vomiting, obstipation, poss obstruction FINDINGS: Bilateral lower lobe lung consolidation and bilateral pleural effusions. No significant bowel distention. No free air or retroperitoneal air identified. Severe right hip deformity with old healed fracture and severe degenerative arthritis. XR/XR acute abdomen series [id number] IMPRESSION: Lower chest abnormalities as above. No significant bowel distention.
[2022-03-12] MEDS: bisacodyl 10 mg Supp PR (13:11)
[2022-03-12] MEDS: enoxaparin 40 mg/0.4 mL Syringe SUBCUT (13:11)
[2022-03-13] VITALS (10 sets, daily range): BP systolic 100–124; BP diastolic 42–65; PULSE 58–62; RESP 14–22; TEMP 36.7–37.4; O2SAT 91–100
[2022-03-13] MEDS: pantoprazole 40 mg SDV IVP ×2 (00:42→12:27)
[2022-03-13] MEDS: gabapentin 300 mg Capsule PO ×2 (00:42→12:27)
[2022-03-13] MEDS: FUROsemide 10 mg/mL SDV 4mL 40 MG IVP ×2 (00:42→12:27)
[2022-03-13 05:59] LABS: Basophils % 0.4 %; Eosinophils % 0.4 %; Hematocrit 29.9 % (37.0-47.0); Hemoglobin 9.7 g/dL (11.5-15.3); Lymphocytes # 1.5 10^3/uL (0.8-4.8); Lymphocytes % 15.8 %; Mean Corpuscular HGB Conc 32.4 g/dL (30.0-36.0); Mean Corpuscular Hemoglobin 34.5 pg (28.0-34.0); Mean Corpuscular Volume 106.4 fl (81-99); Mean Platelet Volume 10.1 fL (7.4-10.4); Monocytes # 1.7 10^3/uL (0.2-0.9); Monocytes % 17.1 %; Neutrophils # 6.36 10^3/uL (1.8-7.7); Neutrophils % 65.6 %; Nucleated Red Blood Cells % 0 %; Platelet Count 258 10^3/cmm (130-400); Red Blood Count 2.81 10^6/uL (4.1-5.3); White Blood Count 9.7 10^3/uL (4.0-10.0)
[2022-03-13 06:37] LABS: Alanine Aminotransferase 8 U/L (0-33); Albumin Level 2.9 g/dL (3.5-5.2); Alkaline Phosphatase 175 IU/L (35-105); Anion Gap 15.5 (5-19); Aspartate Amino Transferase 33 U/L (0-32); Blood Urea Nitrogen 22 mg/dL (8-23); Calcium 9.1 mg/dL (8.5-10.5); Carbon Dioxide 24 mmol/L (22-29); Chloride 99 mmol/L (98-107); Globulin 2.4 g/dL (1.3-4.6); Glucose 82 mg/dL (65-115); NT Pro B Type Natriuretic Pept 7513 pg/mL (0-450); Osmolality Calculated 280 mOsm/kg (285-295); Phosphorus 3.5 mg/dL (2.5-4.5); Potassium 4.5 mmol/L (3.5-5.1); Sodium 134 mmol/L (136-145); Total Bilirubin 1.9 mg/dL (0.15-1.2); Total Protein 5.3 g/dL (6.6-8.7)
[2022-03-13] MEDS: cholecalciferol (vitamin D3) 1,000 unit Tablet 1000 UNIT PO (08:45)
[2022-03-13] MEDS: allopurinol 100 mg Tablet PO (08:45)
[2022-03-13] MEDS: potassium chloride ER 20 mEq Tablet PO ×2 (08:45→17:14)
--- NOTE | 2022-03-13 10:22 | XR_ITS ---
WS: [id number] PORTABLE CHEST HISTORY: pleural effusions COMPARISON: 09/07/2021 Single lead LEFT subclavian pacer. Very mild pulmonary edema has developed. Small LEFT pleural effusion with obscuration of the LEFT hem idiaphragm. This is new since the prior study. These changes were noted at the lung bases on a prior CT from 03/10/2022. Cardiac size: Partially obscured by the consolidation at the LEFT base. Mediastinum/Aorta: Mild atherosclerosis aorta. Sclerotic lesion proximal LEFT humerus. Stable. Prior cholecystectomy. XR/XR chest 1V portable [id number] IMPRESSION: 1. Small LEFT pleural effusion similar to the prior CT of 03/10/2022. 2. Interval development of mild CHF.
[2022-03-13] MEDS: acetaminophen 325 mg Tablet 650 MG PO (10:46)
--- NOTE | 2022-03-13 11:55 | PC.OT ---
OT TREATMENT ATTEMPTED. PATIENT SLEEPING SOUNDLY; WILL ATTEMPT AT A LATER TIME
[2022-03-13] MEDS: enoxaparin 40 mg/0.4 mL Syringe SUBCUT (12:27)
[2022-03-13] MEDS: HYDROcodone-acetaminophen 5-325 mg Tablet 1 TAB PO (12:30)
[2022-03-13] MEDS: cyclobenzaprine 10 mg Tablet PO (12:30)
--- NOTE | 2022-03-13 14:07 | PC.SOCIAL ---
Pg 2 IMM. Explained to pt Pg 2 IMM. No questions voiced. Provided pt a copy. Initialed, dated, & timed a copy & placed in chart.
--- NOTE | 2022-03-13 15:58 | PC.OT ---
OT TREATMENT ATTEMPTED TWICE TODAY. 1ST ATTEMPT: BEFORE LUNCH; PATIENT SOUND ASLEEP AND DOES NOT AWAKEN TO NAME. 2ND ATTEMPT: PATIENT ASLEEP; DOES AWAKEN BUT STATES THAT SHE IS SO TIRED . REQUESTS TO ALLOW REST TODAY AND ATTEMPT TREATMENT TOMORROW.
[2022-03-13 19:57] LABS: SARS Covid-2 Antigen Negative (Negative)
--- NOTE | 2022-03-13 20:04 | P.PN_ITS ---
Vitals/I&O/Wt Last Vital Signs Temp 98.4 F 03/13/22 15:34 Pulse 60 03/13/22 15:34 Resp 16 03/13/22 15:34 BP 105/53 03/13/22 15:34 Pulse Ox 100 03/13/22 15:34 03/13/22 03/13/22 03/13/22 06:59 14:59 22:59 Intake Total 360 / 360 Output Total 1620 300 / 300 Balance -20 / -1110 60 / 60 Physical Exam Narrative: Working with PT. Marya. Const: COMMON NORMALS: alert GENERAL APPEARANCE: cooperative ORIENTATION/CONSCIOUSNESS: Yes awake HENMT: COMMON NORMALS: normocephalic, EAC's normal, Normal external nose present and moist oral mucous membranes HEAD & SCALP: normocephalic NOSE: Normal external nose present EXTERNAL AUDITORY CANAL: EAC's normal Neck/C-Spine: COMMON NORMALS: no meningeal signs Chest: CHEST: Yes Symmetrical chest wall rise Resp: COMMON NORMALS: clear to auscultation bilaterally AUSCULTATION: clear to auscultation bilaterally Cardio: COMMON NORMALS: regular rate, regular rhythm and No murmurs present (Cardio) RATE: regular rate RHYTHM: regular rhythm GI: COMMON NORMALS: Normal to inspection, nondistended, normoactive bowel sounds present, Soft to palpation and non-tender PALPATION: Yes Soft to palpation Extremity: GENERAL: Yes edema (BL LE) Neuro: COMMON NORMALS: moves all extremities SENSORIUM/ORIENTATION: Yes alert MENINGEAL SIGNS: Yes no meningeal signs Psych: COMMON NORMALS: mental status grossly normal Skin: COMMON NORMALS: no wounds RASHES: no rashes Urinary Catheter Management: Mckeon: Cath Placed During This Visit: yes Reason for Continuing Indwelling Catheter: Accurate Measurement of Urinary Output in Critically Ill Patients Urinary Catheter Date of Insertion: 03/10/22 Urinary Catheter Time of Insertion: 15:45 Data : 03/13/22 05:04 03/13/22 05:04 Micro: Microbiology 03/12/22 18:10 Occult Blood (FIT) - Final Stool A&P Assessment and plan (1) Acute exacerbation of CHF (congestive heart failure): Continue IV diuretics, at discharge will transition to Bumex 2 mg. For CHF exacerbation with pleural effusions bilaterally, lower extremity edema. Continue fluid restriction. In negative balance. Track weight. Cardiac diet. TTE with normal EF, LVH, trace MVR, mild TVR. Mild pulmonary hypertension. Small pericardial effusion. Pleural effusion. Requiring 2 L nasal cannula oxygen. Chest x-ray. After episode of vomiting yesterday with possible mild pneumonitis. Status: Acute (2) Obstipation: Improved with bowel regimen. Had a bowel movement. With vomiting, no BM in 4-5 days, not passing flatus, prior history of bowel obstruction. Bowel sounds present. Possible bowel obstruction. N.p.o. for now as discussed with her. We will assess abdominal series x-ray. Additionally with constipation, Dulcolax. She states that has had episodes like this before, always feels better with moving her bowels. Status: Acute (3) Lumbar back pain: Added [place] for pain control to help with mobilization with therapy. Status: Acute (4) Unable to ambulate: Continue therapy. Will need rehabilitation at SNF Status: Acute (5) Leg edema: Continue diet as above. Status: Acute (6) Chronic episodic atrial fibrillation: Status: Acute (7) Benign essential HTN: Status: Acute (8) Acute anemia: Thiamine B12, folic acid, TSH normal. Not iron deficient. May be component of ACD. Hemoccult positive. Continue PPI. Does have a history of hemorrhoids, but no bee blood. Consider endoscopic evaluation once out of acute illness. Status: Acute Plan Bilateral lower extremity edema up to the level of thighs, as above Elevated LFTs, elevated alk phos, elevated bilirubin, Hepatic steatosis noted. -CT scan abdomen pelvis 1. Negative for focal acute inflammatory process in the abdomen or pelvis. 2. Moderate bilateral right greater left pleural effusions. 3. Coronary artery atherosclerotic calcifications. 4. Pacemaker partially visualized. 5. Bibasilar atelectasis versus infiltrate. 6. Right lower lobe demonstrates 2 possible adjacent pulmonary nodules measuring 17 and 9.3 mm, dedicated nonemergent chest CT advised for further evaluation. 7. Hepatic steatosis suspected. 8. Cholecystectomy. 9. Right kidney cyst, negative for follow-up advised. 10. Mild right hydronephrosis and hydroureter without focal obstructing lesion. 11. Large umbilical hernia containing omentum and bowel without dilation or inflammation. 12. Diverticulosis diverticulitis. 13. Mild urinary bladder wall thickening may be due to nondistention, a cystitis is also consideration. 14. Anasarca. 15. 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 Mild R hydronephrosis and hydroureter without focal obstruction. Consider follow-up with urology. Paroxysmal atrial fibrillation, History of pacemaker placement Attestations Medical Necessity Statement*: Continue admission for assessment management of CHF exacerbation, with pleural effusions, lower extremity edema. 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
[2022-03-14] MEDS: HYDROcodone-acetaminophen 5-325 mg Tablet 1 TAB PO (01:30)
[2022-03-14] MEDS: pantoprazole 40 mg SDV IVP (01:30)
[2022-03-14] MEDS: FUROsemide 10 mg/mL SDV 4mL 40 MG IVP (01:30)
[2022-03-14] MEDS: gabapentin 300 mg Capsule PO (01:30)
[2022-03-14 02:57] LABS: Basophils # 0.1 10^3/uL (0.0-0.1); Basophils % 0.7 %; Eosinophils # 0.1 10^3/uL (0.0-0.8); Eosinophils % 1.2 %; Hematocrit 31.2 % (37.0-47.0); Hemoglobin 10.2 g/dL (11.5-15.3); Lymphocytes # 1.7 10^3/uL (0.8-4.8); Lymphocytes % 17.7 %; Mean Corpuscular HGB Conc 32.7 g/dL (30.0-36.0); Mean Corpuscular Hemoglobin 34.6 pg (28.0-34.0); Mean Corpuscular Volume 105.8 fl (81-99); Monocytes # 1.7 10^3/uL (0.2-0.9); Monocytes % 17.5 %; Neutrophils # 6.07 10^3/uL (1.8-7.7); Nucleated Red Blood Cells % 0 %; Platelet Count 261 10^3/cmm (130-400); Red Blood Count 2.95 10^6/uL (4.1-5.3); White Blood Count 9.8 10^3/uL (4.0-10.0)
[2022-03-14 03:08] LABS: Alanine Aminotransferase 9 U/L (0-33); Albumin Level 2.9 g/dL (3.5-5.2); Alkaline Phosphatase 172 IU/L (35-105); Blood Urea Nitrogen 23 mg/dL (8-23); Calcium 9.1 mg/dL (8.5-10.5); Carbon Dioxide 25 mmol/L (22-29); Chloride 100 mmol/L (98-107); Globulin 2.8 g/dL (1.3-4.6); Glucose 85 mg/dL (65-115); Osmolality Calculated 281 mOsm/kg (285-295); Sodium 134 mmol/L (136-145); Total Bilirubin 1.2 mg/dL (0.15-1.2); Total Protein 5.7 g/dL (6.6-8.7)
[2022-03-14 03:18] LABS: Anion Gap 14.1 (5-19); Aspartate Amino Transferase 43 U/L (0-32); Potassium 5.1 mmol/L (3.5-5.1)
[2022-03-14 04:00] VITALS: BP 122/70; PULSE 68; RESP 18; TEMP 37; O2SAT 96
[2022-03-14 06:00] VITALS: PULSE 60
[2022-03-14 08:00] VITALS: BP 148/61; PULSE 60; RESP 18; TEMP 36.9; O2SAT 100
[2022-03-14] MEDS: cholecalciferol (vitamin D3) 1,000 unit Tablet 1000 UNIT PO (09:43)
[2022-03-14] MEDS: potassium chloride ER 20 mEq Tablet PO (09:43)
[2022-03-14] MEDS: allopurinol 100 mg Tablet PO (09:43)
[2022-03-14 12:00] VITALS: BP 112/64; PULSE 65; RESP 16; TEMP 36.8; O2SAT 99
[2022-03-14 14:41] VITALS: BP 112/64; PULSE 65; RESP 16; TEMP 36.8; O2SAT 99
--- NOTE | 2022-03-14 20:23 | P.DS_ITS ---
Discharge Providers Date of Admission: 03/10/22 10:54 Date of Discharge: March 14, 2022 Attending Provider at Admission: Matthias Dickerson MD Attending Provider at Discharge: Rohan Thomas Primary Care Provider: Lai Wren MD Diagnoses at Discharge Discharge Diagnosis (1) Acute exacerbation of CHF (congestive heart failure): Status: Acute (2) Obstipation: Status: Acute (3) Lumbar back pain: Status: Acute (4) Unable to ambulate: Status: Acute (5) Leg edema: Status: Acute (6) Chronic episodic atrial fibrillation: Status: Acute Permanent problem details: Patient has a history of prolonged bleeding and easy bruising. For that reason, she is not on any oral anticoagulation. (7) Benign essential HTN: Status: Acute (8) Acute anemia: Status: Acute Reason for Visit Reason for Visit: Severe Lower Back Pain Hospital Course Hospital Course Pleasant 81-year-old lady with diastolic CHF, atrial fibrillation not on anticoagulation due to bruising and bleeding, arthritis and DJD, bilateral lower extremity edema, HTN, PPM was admitted after presenting with bilateral extremity edema, generalized weakness, shortness of breath and back pain. Difficulty ambulating with wheeled walker. With worsening/severe low back pain after reaching for something on the floor. Increasing shortness of breath and severe lower extremity edema despite taking diuretics. Edema all the way up to her thighs. Presentation with finding of acute exacerbation of diastolic CHF, with extensive edema, bilateral pleural effusions, treated with IV diuresis, fluid restriction. CT lumbar spine obtained, as follows: -1. Mild compression deformity centrally along the inferior endplate of L2 which appears chronic. Advanced multilevel degenerative disc disease involving the L3- S1 segment. This includes facet arthropathy and grade 1 anterolisthesis of L4 on L5 and L5 on S1. Moderate to severe central canal stenosis most pronounced at L3-L4. 2. Partially visualized small volume pleural effusions, left greater than right. 3. Severe DJD and potential deformity from prior fracture involving the right hip/proximal right femur. Also with noted anemia, Hemoccult was tested and found positive. Started on PPI. Was additionally assessed by CT abdomen pelvis with a number of incidental findings: 1. Negative for focal acute inflammatory process in the abdomen or pelvis. 2. Moderate bilateral right greater left pleural effusions. 3. Coronary artery atherosclerotic calcifications. 4. Pacemaker partially visualized. 5. Bibasilar atelectasis versus infiltrate. 6. Right lower lobe demonstrates 2 possible adjacent pulmonary nodules measuring 17 and 9.3 mm, dedicated nonemergent chest CT advised for further evaluation. 7. Hepatic steatosis suspected. 8. Cholecystectomy. 9. Right kidney cyst, negative for follow-up advised. 10. Mild right hydronephrosis and hydroureter without focal obstructing lesion. 11. Large umbilical hernia containing omentum and bowel without dilation or inflammation. 12. Diverticulosis diverticulitis. 13. Mild urinary bladder wall thickening may be due to nondistention, a cystitis is also consideration. 14. Anasarca. 15. 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 TTE showed normal ejection fraction, trace MVR, mild TVR, mild pulmonary hypertension. Small size pericardial effusion. Pleural effusion. Hospitalization also complicated by episode of vomiting, obstipation, with history of abdominal surgeries, prior episodes of bowel obstruction, was treated conservatively, bowel rest, bowel regimen, had a bowel movement, with resolution of obstipation, partial obstruction/pseudoobstruction, tolerating oral intake. After discharge we will continue with Bumex for continued diuresis for CHF, lower extremity edema, pleural effusions. Please reassess volume status, adjust diuretics. Please reassess pleural effusions for resolution. Due to significant deconditioned she is discharging to assisted facility for additional rehabilitation. Continue symptomatic management of knee, osteoarthritis. Consider referral to orthopedics in case of persistent d ifficulties with mobility. When she is additionally referred for follow-up with urology due to mild R hydronephrosis and hydroureter without focal obstructing lesion. Urinary bladder thickening. Transient ROSA noted in the hospital, although with renal function improving, please follow-up for resolution. With resolution of pleural effusions, please follow-up pulmonary nodules in right lower lobe. Please follow-up anemia, blood count in 1 week, and consider referral for endoscopic evaluation. Please follow-up in office other incidental and chronic conditions including chronic kidney disease, hepatic steatosis, umbilical hernia. Discussed also with her daughter. Physical Exam Narrative: Working with OT. Const: COMMON NORMALS: alert GENERAL APPEARANCE: cooperative ORIENTATION/CONSCIOUSNESS: Yes awake HENMT: COMMON NORMALS: normocephalic, EAC's normal, Normal external nose present and moist oral mucous membranes HEAD & SCALP: normocephalic NOSE: Normal external nose present EXTERNAL AUDITORY CANAL: EAC's normal Neck/C-Spine: COMMON NORMALS: no meningeal signs Chest: CHEST: Yes Symmetrical chest wall rise Resp: COMMON NORMALS: clear to auscultation bilaterally AUSCULTATION: clear to auscultation bilaterally Cardio: COMMON NORMALS: regular rate, regular rhythm and No murmurs present (Cardio) RATE: regular rate RHYTHM: regular rhythm GI: COMMON NORMALS: Normal to inspection, nondistended, normoactive bowel sounds present, Soft to palpation and non-tender PALPATION: Yes Soft to palpation Extremity: GENERAL: Yes edema (BL LE) Neuro: COMMON NORMALS: moves all extremities SENSORIUM/ORIENTATION: Yes alert MENINGEAL SIGNS: Yes no meningeal signs Psych: COMMON NORMALS: mental status grossly normal Skin: COMMON NORMALS: no wounds RASHES: no rashes Urinary Catheter Management: Mckeon: Cath Placed During This Visit: yes Reason for Continuing Indwelling Catheter: Accurate Measurement of Urinary Output in Critically Ill Patients Urinary Catheter Date of Insertion: 03/10/22 Urinary Catheter Time of Insertion: 15:45 Discharge Data Studies Completed and Pending Completed Studies During Hospitalization Category Date Time Status CT abdomen pelvis wo con [id number] Urgent Cat Scan 03/10/22 13:[address] lumbar spine wo con* [id number] Urgent Cat Scan 03/10/22 09:12 Completed XR acute abdomen series [id number] Routine Exams 03/12/22 11:47 Completed XR chest 1V portable [id number] Routine Exams 03/13/22 10:22 Completed XR hip BI 2V wo/w pel [id number] Routine Exams 03/10/22 17:58 Completed XR lumbar spine 2-3V* [id number] Stat Exams 03/10/22 08:36 Completed CV. echo complete* [id number] Routine Ultrasound 03/11/22 21:01 Completed Radiology Impressions Lumbar Spine X-Ray 03/10/22 08:36 IMPRESSION: Mild chronic appearing vertebral body height loss centrally along the inferior endplate of L2. Multilevel degenerative disc disease involving the L3-S1 segment. Grade 1 anterolisthesis of L4 on L5 and L5 on S1 with facet arthropathy noted in the lower lumbar spine. Lumbar Spine CT 03/10/22 09:12 IMPRESSION: 1. Mild compression deformity centrally along the inferior endplate of L2 which appears chronic. Advanced multilevel degenerative disc disease involving the L3-S1 segment. This includes facet arthropathy and grade 1 anterolisthesis of L4 on L5 and L5 on S1. Moderate to severe central canal stenosis most pronounced at L3-L4. 2. Partially visualized small volume pleural effusions, left greater than right. 3. Severe DJD and potential deformity from prior fracture involving the right hip/proximal right femur. Abdomen/Pelvis CT 03/10/22 13:01 IMPRESSION: 1. Negative for focal acute inflammatory process in the abdomen or pelvis. 2. Moderate bilateral right greater left pleural effusions. 3. Coronary artery atherosclerotic calcifications. 4. Pacemaker partially visualized. 5. Bibasilar atelectasis versus infiltrate. 6. Right lower lobe demonstrates 2 possible adjacent pulmonary nodules measuring 17 and 9.3 mm, dedicated nonemergent chest CT advised for further evaluation. 7. Hepatic steatosis suspected. 8. Cholecystectomy. 9. Right kidney cyst, negative for follow-up advised. 10. Mild right hydronephrosis and hydroureter without focal obstructing lesion. 11. Large umbilical hernia containing omentum and bowel without dilation or inflammation. 12. Diverticulosis diverticulitis. 13. Mild urinary bladder wall thickening may be due to nondistention, a cystitis is also consideration. 14. Anasarca. 15. 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 Hip/Pelvis X-Ray 03/10/22 17:58 IMPRESSION: Chronic deformity of the proximal right femur from old callused right hip fracture. There is straightening of the femoral head/neck junction with associated severe DJD of the right hip as described in the body of the report. Chest/Abdomen X-ray 03/12/22 11:47 IMPRESSION: Lower chest abnormalities as above. No significant bowel distention. Chest X-Ray 03/13/22 10:22 IMPRESSION: 1. Small LEFT pleural effusion similar to the prior CT of 03/10/2022. 2. Interval development of mild CHF. Laboratory Results WBC 9.8 10^3/uL (4.0-10.0) 03/14/22 02:06 RBC 2.95 10^6/uL (4.1-5.3) L 03/14/22 02:06 Hgb 10.2 g/dL (11.5-15.3) L 03/14/22 02:06 Hct 31.2 % (37.0-47.0) L 03/14/22 02:06 MCV 105.8 fl (81-99) H 03/14/22 02:06 MCH 34.6 pg (28.0-34.0) H 03/14/22 02:06 MCHC 32.7 g/dL (30.0-36.0) 03/14/22 02:06 RDW 20.0 % (12.1-15.1) H 03/14/22 02:06 Plt Count 261 10^3/cmm (130-400) 03/14/22 02:06 MPV 10.0 fL (7.4-10.4) 03/14/22 02:06 Neut % (Auto) 62.0 % 03/14/22 02:06 Lymph % (Auto) 17.7 % 03/14/22 02:06 [place] % (Auto) 17.5 % 03/14/22 02:06 Eos % (Auto) 1.2 % 03/14/22 02:06 Baso % (Auto) 0.7 % 03/14/22 02:06 Neut # (Auto) 6.07 10^3/uL (1.8-7.7) 03/14/22 02:06 Lymph # (Auto) 1.7 10^3/uL (0.8-4.8) 03/14/22 02:06 [place] # (Auto) 1.7 10^3/uL (0.2-0.9) H 03/14/22 02:06 Eos # (Auto) 0.1 10^3/uL (0.0-0.8) 03/14/22 02:06 Baso # (Auto) 0.1 10^3/uL (0.0-0.1) 03/14/22 02:06 Nucleated RBC % (auto) 0 % 03/14/22 02:06 Nucleated RBCs # 0.0 /100WBC 03/14/22 02:06 ESR 46 mm/hr (0-15) H 03/10/22 09:34 Sodium 134 mmol/L (136-145) L 03/14/22 02:06 Potassium 5.1 mmol/L (3.5-5.1) 03/14/22 02:06 Chloride 100 mmol/L (98-107) 03/14/22 02:06 Carbon Dioxide 25 mmol/L (22-29) 03/14/22 02:06 Anion Gap 14.1 (5-19) 03/14/22 02:06 BUN 23 mg/dL (8-23) 03/14/22 02:06 Creatinine 1.4 mg/dL (0.5-0.9) H 03/14/22 02:06 GFR Calculation Not Reportable 03/14/22 02:06 Glucose 85 mg/dL (65-115) 03/14/22 02:06 Calculated Osmolality 281 mOsm/kg (285-295) L 03/14/22 02:06 Calcium 9.1 mg/dL (8.5-10.5) 03/14/22 02:06 Phosphorus 3.5 mg/dL (2.5-4.5) 03/13/22 05:04 Magnesium 2.0 mg/dL (1.7-2.3) 03/13/22 05:04 Iron 93 ug/dL (37-145) 03/10/22 09:34 TIBC 170 mcg/dl 03/10/22 09:34 % Saturation 54.7 % (20-50) H 03/10/22 09:34 Unsat Iron Binding 77 ug/dL (112-347) L 03/10/22 09:34 Ferritin 174 ng/mL (15-150) H 03/10/22 09:34 Total Bilirubin 1.2 mg/dL (0.15-1.2) 03/14/22 02:06 AST 43 U/L (0-32) H 03/14/22 02:06 ALT 9 U/L (0-33) 03/14/22 02:06 Alkaline Phosphatase 172 IU/L (35-105) H 03/14/22 02:06 NT-Pro-B Natriuret Pep 7513 pg/mL (0-450) H 03/13/22 05:04 NT-Pro-B Natriuret Pep Cancelled 03/13/22 05:04 Total Protein 5.7 g/dL (6.6-8.7) L 03/14/22 02:06 Albumin 2.9 g/dL (3.5-5.2) L 03/14/22 02:06 Globulin 2.8 g/dL (1.3-4.6) 03/14/22 02:06 Vitamin B12 581 pg/mL (232-1245) 03/10/22 09:34 Folate 7.4 ng/mL (4.8-37.3) 03/10/22 09:34 TSH 3.20 uIU/mL (0.27-4.20) 03/10/22 09:34 Urine Color Yellow (Yellow) 03/10/22 09:30 Urine Appearance Clear (CLEAR) 03/10/22 09:30 Urine pH 5 (5-7) 03/10/22 09:30 Ur Specific [place] 1.010 (1.005-1.030) 03/10/22 09:30 Urine Protein Neg (Negative) 03/10/22 09:30 Urine Glucose (UA) Norm (Normal) 03/10/22 09:30 Urine Ketones 1+ (Negative) H 03/10/22 09:30 Urine Blood Neg (Negative) 03/10/22 09:30 Urine Nitrate Negative (Negative) 03/10/22 09:30 Urine Bilirubin Neg (Negative) 03/10/22 09:30 Urine Urobilinogen 1 mg/dL (Negative) H 03/10/22 09:30 Ur Leukocyte Esterase Negative (Negative) 03/10/22 09:30 SARS-CoV-2 Ag (Rapid) Negative (Negative) 03/13/22 18:15 Vitals Last Vital Signs Temp 98.3 F 03/14/22 14:41 Pulse 65 03/14/22 14:41 Resp 16 03/14/22 14:41 BP 112/64 03/14/22 14:41 Pulse Ox 99 03/14/22 14:41 Discharge Plan Discharge Patient Disposition: Xfer SNF Condition: Stable Prescriptions: New bumetanide 2 mg tablet 2 mg PO BID Qty: 90 0RF pantoprazole 40 mg tablet,delayed release (DR/EC) 40 mg PO QAM 42 Days Qty: 42 0RF Continued acetaminophen [Tylenol Extra Strength] 500 mg tablet 500 mg PO Q6H PRN (Reason: Pain) 0RF allopurinol 100 mg tablet 100 mg PO DAILY 0RF cholecalciferol (vitamin D3) 1,250 mcg (50,000 unit) capsule 1,250 mcg PO DAILY 0RF docusate sodium 100 mg Capsule 100 mg PO BID PRN (Reason: Constipation) 0RF Dairy Aid 3,000 unit Tablet,Chewable 3,000 unit PO TIDWM PRN (Reason: Lactose Intolerance) 0RF Rx Instructions: administer with meals and/or snacks Klor-Con M20 20 mEq tablet,ER particles/crystals 40 meq PO BID 0RF Discontinued famotidine 20 mg tablet 20 mg PO BID 0RF furosemide 40 mg tablet 80 mg PO BID 0RF Discharge Orders: Discharge Order (Routine); Ordered 03/14/22 Ordered By: Rohan Thomas Referrals: Zoe Worrell MD [Physician] - 04/29/22 1:45 pm Israel Torres MD [Physician] - 1 week (Mild R hydronephrosis) Luba Darby FNP [Nurse Practitioner] - 03/22/22 11:30 am Lai Wren MD [Primary Care Provider] - 4-7 days Discharge Diet: Advance as tolerated, Cardiac and Full LIquid Discharge Activity: Increase activity as tolerated and As per PT/OT instructions Activity Restrictions/Additional Instructions: Please follow-up with primary provider and heart doctor regarding congestive heart failure, with swelling of lower extremities, as well as pleural effusions. For now continue Bumex 2 mg twice daily, but this will need to be adjusted by your primary doctor or heart doctor on reassessment. Nasal cannula oxygen 2 L, as needed to maintain saturation 92% or above. Wean off as tolerating. Please have your primary doctor reassess your kidney function due to chronic kidney disease, worsened creatinine with diuresis. Have your primary doctor reassess pleural effusions. Once pleural effusions improved, please discuss with your primary doctor additional assessment with dedicated CT of the chest for closer review of the noted possible nodules, 17 mm and 9.3 mm in the right lower lung. Discuss with your primary doctor regarding fatty liver disease seen on CT. Follow-up with your primary doctor regarding large umbilical hernia. Follow-up with your primary doctor regarding chronic right hip fracture deformity with severe osteoarthritis and arthritis in your back with moderate to severe central canal stenosis. Depending on your recovery discussed consideration whether referral to orthopedic surgery is needed. Also incidentally seen on CT scan mild urinary bladder wall thickening possibly due to nondistention. Urinalysis was not suggestive of urinary tract infection. Please follow-up with your primary doctor also regarding positive Hemoccult (hidden blood) in your stool. Continue acid cristine medication. Avoid NSAIDs like ibuprofen, Aleve, or other. Discuss consideration of assessment by endoscopic evaluation. Please follow-up blood count in 1 week for anemia. Discharge Attestations Time Spent in Discharge Care*: greater than 30 min Quality Metrics Clinical Quality Measures [ No reported AMI, CVA or VTE this stay] Coding Level of Care Code Acute Chg FW [place] note Diagnoses Acute exacerbation of CHF (congestive heart failure) I50.9 Obstipation K59.00 Lumbar back pain M54.50 Unable to ambulate R26.2 Leg edema R60.0 Chronic episodic atrial fibrillation I48.20 Benign essential HTN I10 Acute anemia D64.9
== END 2022-03-14 14:41 | disposition skilled nursing facility (03) | DRG 291 ==
LOC: ER 11:09 → MEDSURG 11:47
PROVIDERS: Admitting Provider Family Medicine; Emergency Provider Emergency Medicine; PCP Family Medicine; Visit Provider Internal Medicine
DX: I13.0 Hypertensive heart and chronic kidney disease with heart failure and stage 1 through stage 4 chronic kidney disease, or unspecified chronic kidney disease (principal); I50.33 Acute on chronic diastolic (congestive) heart failure; I48.20 Chronic atrial fibrillation, unspecified; N17.9 Acute kidney failure, unspecified; K56.600 Partial intestinal obstruction, unspecified as to cause; N13.30 Unspecified hydronephrosis; I48.0 Paroxysmal atrial fibrillation; N18.9 Chronic kidney disease, unspecified; D64.9 Anemia, unspecified; I27.20 Pulmonary hypertension, unspecified; R91.8 Other nonspecific abnormal finding of lung field; R19.5 Other fecal abnormalities; M51.36 Other intervertebral disc degeneration, lumbar region; M48.061 Spinal stenosis, lumbar region without neurogenic claudication; M21.951 Unspecified acquired deformity of right thigh; R94.5 Abnormal results of liver function studies; K59.00 Constipation, unspecified; K76.0 Fatty (change of) liver, not elsewhere classified; K42.9 Umbilical hernia without obstruction or gangrene; Z95.0 Presence of cardiac pacemaker
CPT/HCPCS: 36415; 51702; 71045; 72100; 72131; 73521; 74022; 74176; 80053; 80503; 81003; 82274; 82607; 82728; 82746; 83540; 83550; 83735; 83880; 84100; 84443; 85025; 85651; 87426; 93306; 94664; 96372; 96374; 97110; 97161; 97167; 97530; 97535; 99285; C9113; J1650; J1940; J2405

== ENCOUNTER → 2022-03-27 08:53 | Outpatient (BNVA) | payer MEDICARE, OTHER, SELFPAY | PROVIDERS: PCP Family Medicine; Visit Provider Nurse Practitioner Family | DX: I50.9 Heart failure, unspecified (principal); Z09 Encounter for follow-up examination after completed treatment for conditions other than malignant neoplasm | CPT/HCPCS: 80048; 83880; 99213 ==

== ENCOUNTER → 2022-03-27 08:53 | Outpatient (BNVA) | payer OTHER, MEDICARE, SELFPAY | LOC: HCSOACUTE 03-28 10:37 | PROVIDERS: PCP Family Medicine; Visit Provider Nurse Practitioner Family | DX: I11.0 Hypertensive heart disease with heart failure (principal); I50.9 Heart failure, unspecified; I48.20 Chronic atrial fibrillation, unspecified | CPT/HCPCS: 80048; 83880; 99213; 99214 ==

== ENCOUNTER 2022-04-08 06:59 | Outpatient (CLI) | payer OTHER, MEDICARE, SELFPAY ==
--- NOTE | 2022-04-08 07:00 | XRR_ITS ---
PROCEDURE INFORMATION: Exam: XR Abdomen Exam date and time: 04/08/2022 7:23 AM Age: 81 years old Clinical indication: Other: Bladder wall thickening; Additional info: Bladder wall thickening, kub @ [facility] on 04/08/22 @ 7. Appt to follow TECHNIQUE: Imaging protocol: XR of the abdomen. Views: Frontal supine view of the abdomen. 1 View. COMPARISON: CR XR acute abdomen series [id number] 03/12/2022 12:55 PM FINDINGS: Gastrointestinal tract: Air and fecal filled colon, which is not abnormally distended. No abnormally dilated air-filled small bowel loops. Intraperitoneal space: Surgical clips in the right pelvis noted. Surgical clips in the right upper quadrant noted. Bones/joints: Significant irregularity of the partially visualized right hip joint. Degenerative changes in the partially visualized spine. XR/XR KUB [id number] IMPRESSION: No radiographically evident acute abdominal abnormality identified.
== END 2022-04-08 07:00 | disposition home or self-care (01) ==
LOC: RAD 07:03
PROVIDERS: PCP Family Medicine; Visit Provider Urology
DX: N32.89 Other specified disorders of bladder (principal); N13.30 Unspecified hydronephrosis
CPT/HCPCS: 74018; 99213